=== PATIENT | male | born 1965 | race Two or more races ===

== ENCOUNTER 2018-08-16 12:29 | Day surgery (SDC) | payer OTHER ==
[~2018-08-16 12:29] MED LIST: LIDOCAINE 2% (SDV) 5 ML INJ
[2018-08-16] MEDS ORDERED: PROPOFOL 40 ML (13:42)
== END 2018-08-16 15:04 | disposition home or self-care (01) ==
LOC: GIL 12:29
DX: Z12.11 Encounter for screening for malignant neoplasm of colon (principal); K64.8 Other hemorrhoids
CPT/HCPCS: 45378